=== PATIENT | male | born 1975 | race Caucasian/White ===

== ENCOUNTER 2016-12-12 15:02 | Emergency (ER) | payer MEDICAID ==
[~2016-12-12] VITALS: Ht 182.9 cm; Wt 95.3 kg
[2016-12-12 16:21] VITALS: BP 153/107
== END 2016-12-12 17:58 | disposition home or self-care (01) ==
LOC: ER 15:06
DX: S93.401A Sprain of unspecified ligament of right ankle, initial encounter (principal); X58.XXXA Exposure to other specified factors, initial encounter; Y93.89 Activity, other specified; Y92.89 Other specified places as the place of occurrence of the external cause; Y99.9 Unspecified external cause status
CPT/HCPCS: 73610-TC; A4606; Z7610